=== PATIENT | male | born 1995 | race Caucasian/White ===

== ENCOUNTER 2021-06-10 17:13 | Emergency (ER) | payer BC, SELFPAY ==
[2021-06-10 17:28] VITALS: BP 147/86; PULSE 96; RESP 20; TEMP 37; O2SAT 100
--- NOTE | 2021-06-10 17:30 | ED.GENADULT ---
HPI - General Adult General Chief complaint: Wound/Laceration Stated complaint: Tailbone Injury Time Seen by Provider: 06/10/21 17:46 Mode of arrival: ambulatory Limitations: no limitations History of Present Illness HPI narrative: 25-year-old male presents concern for tailbone pain and drainage from the area since December. Reports he fell in December and has been having the symptoms since then. He reports occasional bleeding from the area. He denies any subsequent injury. He denies any intervention. Denies fever, body aches, chills, sweats. complaint: Tailbone pain Related Data Allergies Allergy/AdvReac Type Severity Reaction Status Date / Time No Known Allergies Allergy Verified 06/10/21 17:41 Review of Systems Review of Systems: CONSTITUTIONAL: Denies malaise, chills, sweats, or fever. SKIN: Reports intermittent drainage and bleeding from tailbone MUSCULOSKELETAL: Reports tailbone pain NEUROLOGIC: Denies numbness, weakness All systems reviewed & are unremarkable except as noted in HPI and below PMFSH Comments At time of signature, agree with nursing past medical, surgical, social and family history. There is no relevant family history pertinent to the presenting complaint Exam Narrative: GENERAL: Well-appearing, well-nourished, and in no acute distress. HEAD: Normocephalic EYES: PERRLA, sclera clear ENT: Mucous membranes moist. NECK: Supple. CHEST: No respiratory distress. Speaks in full sentences. HEART: Regular rate and rhythm. SKIN: Warm, dry, no visible rash. NEURO: Alert and oriented x3. PSYCH: Normal mood and affect Back/Spine/Pelvis: Back/spine/pelvis image: 1. Mild erythema and induration without fluctuation, clear drainage noted 2. Well-demarcated firm nodule Course Course Emergency Course: Advised patient to take antibiotic as directed and follow-up with general surgery for further evaluation Patient is aware of diagnosis, understands and agrees to treatment plan. Anticipatory guidance given. Patient agrees to follow-up as directed and is aware of reasons to seek care at the emergency department. Portions of this record may have been created with voice recognition software Level of Care: Express Care Visit Vital Signs Vital signs: Reviewed. Medical Decision Making MDM Narrative Medical decision making narrative: Exam findings show no acute concerns or changes; patient is non-toxic appearing and is in no distress. Patient is appropriate for outpatient treatment and follow-up. Critical Care Time Critical Care Time Critical Care Time: No Discharge Plan Discharge Clinical Impression: Cyst near coccyx Patient Disposition: Home, Self-Care Condition: Stable Instructions: Antibiotic Form, Pilonidal Cyst (ED) Additional Instructions: 1) Please follow-up with your primary care doctor in the next 1-2 days. 2) If you have any worsening of symptoms or any other urgent concerns please go to the ER. 3) Please take medications as prescribed. You may use warm moist compress to the area for pain relief. You may alternate Tylenol and ibuprofen for pain relief. 4) Please read and follow information included in discharge instructions. Prescriptions: New amoxicillin-pot clavulanate 875-125 mg tablet 1 tablet PO Q12H 10 Days Qty: 20 RF: 0 Follow-up/Referrals: PHYSICIAN,CHEERLEADING COACH [Primary Care Provider] - Eitan Sosa DO [Physician] - Time of Disposition: 17:53
== END 2021-06-10 18:04 | disposition home or self-care (01) ==
PROVIDERS: Emergency Provider Nurse Practitioner
DX: L72.9 Follicular cyst of the skin and subcutaneous tissue, unspecified (principal)
CPT/HCPCS: 99213; G0463

== ENCOUNTER 2022-03-23 13:12 | Emergency (ER) | payer BC, SELFPAY ==
[2022-03-23 13:21] VITALS: BP 192/83; PULSE 93; RESP 16; TEMP 36.3; O2SAT 98
--- NOTE | 2022-03-23 14:39 | ED.WOUNDLAC ---
HPI - Wound/Laceration General Chief Complaint: Wound/Laceration Stated Complaint: left thumb lac Time Seen by Provider: 03/23/22 14:30 Source: patient, RN notes reviewed and old records reviewed Mode of arrival: ambulatory Limitations: no limitations History of Present Illness HPI narrative: 26-year-old male who presents to [facility] with laceration to his dorsal left thumb which occurred today when removing old stool at grandmothers house to replace with new toilet. Patient reports that he cut it on area of cracked porcelin of old stool. Bleeding is controlled with flap type of laceration noted to dorsal aspect of his left dorsal thumb. patient reports that his tetanus is not up to date Onset (ago): minute(s) (within past 30 minutes prior to arrival at clinic) Location: other (left dorsal thumb) Patient tetanus UTD: No Treatments prior to arrival: bandage Related Data Allergies Allergy/AdvReac Type Severity Reaction Status Date / Time No Known Allergies Allergy Verified 06/10/21 17:41 Review of Systems Review of Systems: CONSTITUTIONAL: Denies fever, chills, or sweats. CARDIOVASCULAR: Denies chest pain, palpitations, or edema. RESPIRATORY: Denies cough or dyspnea. SKIN: Reports laceration to left dorsal thumb with bleeding controlled MUSCULOSKELETAL: Denies musculoskeletal pain NEUROLOGIC: Denies numbness, or weakness. All systems reviewed & are unremarkable except as noted in HPI and below PMFSH Social History Social History (Updated 03/24/22 @ 08:41 by Tina Hay NP) Smoking status: Never smoker Alcohol intake: current Alcohol use details: social Substance use: never Substance use type: does not use Gender identity (if verbalized by the patient): Male Comments At time of signature, agree with nursing past medical, surgical, social and family history. There is no relevant family history pertinent to the presenting complaint Exam Narrative: GENERAL: Well-appearing, well-nourished, and in no acute distress. HEAD: Normocephalic, atraumatic. NECK: Supple. no lymphadenopathy CHEST: Clear to auscultation. No respiratory distress.SAO2 98% on room air HEART: Regular rate and rhythm. No murmur heard. Normal peripheral pulses. EXTREMITIES: Normal range of motion. No edema. SKIN: Warm, dry, no rash. Reports 3cm flap type of laceration to left dorsal thumb with full mobility intact with normal pulses to left wrist, denies any tingling or numbness to left thumb or hand, nail bed blanches briskly NEURO: No focal deficits. Alert and oriented x3. Course Course Level of Care: Express Care Visit Vital Signs Vital signs: Vital Signs Temperature 36.3 C L 03/23/22 13:21 Pulse Rate 93 03/23/22 13:21 Respiratory Rate 16 03/23/22 13:21 Blood Pressure 192/83 H 03/23/22 13:21 Pulse Oximetry 98 03/23/22 13:21 Oxygen Delivery Room Air 03/23/22 13:21 Temperature 36.3 C L 03/23/22 13:21 Pulse Rate 93 03/23/22 13:21 Respiratory Rate 16 03/23/22 13:21 Blood Pressure 192/83 H 03/23/22 13:21 Pulse Oximetry 98 03/23/22 13:21 Oxygen Delivery Room Air 03/23/22 13:21 Procedures Laceration left dorsal thumb: Date: 03/23/22 Time: 14:40 Site: other (left dorsal thumb) Side (If applicable): left Size (cm): 3 Description: flap Depth: simple, single layer Local Anesthetic: lidocaine 1% Amount of anesthesia used (mL): 6 Pre-repair: wound explored, irrigated extensively and other (cleansed with [employer] wound cleanser) ====== Skin Level ====== Skin layer closed with: nylon Size (cm): 4-0 Number of sutures: 10 Technique: simple, interrupted ====== Subcutaneous Layer ====== ====== Muscle Layer ====== ====== Tendon Layer ====== Dressing: left thumb flap laceration cleansed with [employer] skin cleanser extensively irrigated with sterile saline solution with
[2022-03-23] MEDS: TETANUS,DIPHTHERIA,AC PERTUSSIS ADULT (0.5 ML) BOOSTRIX IM (15:00)
== END 2022-03-23 15:25 | disposition home or self-care (01) ==
PROVIDERS: Emergency Provider Registered Nurse
DX: S61.012A Laceration without foreign body of left thumb without damage to nail, initial encounter (principal); W26.8XXA Contact with other sharp object(s), not elsewhere classified, initial encounter; Z23 Encounter for immunization
CPT/HCPCS: 12002; 90471; 90715; 99213; G0463

== ENCOUNTER 2023-11-20 15:24 | Emergency (ER) | payer OTHER, BC, SELFPAY ==
--- NOTE | 2023-11-20 15:39 | ED.URI ---
HPI - URI/Sore Throat General Chief Complaint: Unspecified Stated Complaint: Lighthead,SOB,Pressure on eyes Time Seen by Provider: 11/20/23 15:41 Source: patient, RN notes reviewed and old records reviewed Mode of arrival: ambulatory Limitations: no limitations History of Present Illness HPI Narrative: 27-year-old male to [facility] for complaint of hot flashes, intermittent dizziness, increased activity intolerance, inability to concentrate since Thursday. Patient reports quitting his vape, which contained nicotine, cold turkey on Thursday after using for over 10 years. Patient states that symptoms have been intermittent and he used to vape occasionally Thursday and . Patient questioning if symptoms could be a result of anxiety or nicotine withdrawal. Patient called PCP today and has an appointment for Thursday at 2:00 pm. patient states he was concerned about his blood pressure and wanted to be seen today to have his blood pressure checked. Patient denies chest pain, shortness of breath, fever, nausea, weakness, numbness, tingling, abdominal pain, GI complaints, urinary changes, headache, ear pain, sore throat, cough, allergies. Patient is sitting comfortably in exam room in no acute distress. Respirations even and nonlabored. Patient able to speak in full sentences without difficulty. Patient alert and oriented x3. Patient able to tolerate fluids by. Related Data Home Medications Medication Instructions Recorded Confirmed testosterone cypionate 200 mg/mL 200 mg [id number] 11/20/23 11/20/23 intramuscular oil Allergies Allergy/AdvReac Type Severity Reaction Status Date / Time No Known Allergies Allergy Verified 11/20/23 15:45 Review of Systems Review of Systems: All systems reviewed & are unremarkable except as noted in HPI and below Constitutional: Constitutional: Reports as per HPI, Denies body ache(s), Denies chills, Denies fatigue, Denies fever(s), Denies headache(s) and Denies lethargy Eyes: Eyes: Reports no additional eye complaints ENT: Reports system reviewed and no additional complaints, except as documented Cardiovascular: Cardiovascular: Reports no additional cardiovascular complaints, Denies chest pain and Denies dyspnea Respiratory: Respiratory: Reports as per HPI, Denies change in phlegm color, Denies chest congestion, Denies cough, Denies pain on inspiration, Denies dyspnea, Reports dyspnea on exertion and Denies wheezing Gastrointestinal: Gastrointestinal: Reports no additional gastrointestinal complaints Musculoskeletal: Musculoskeletal: Reports as per HPI, Denies back pain, Denies myalgias, Denies muscle weakness, Denies numbness and Denies tingling Neurologic: Reports as per HPI, Reports Normal hearing present, Denies behavioral changes, Reports dizziness ( Intermittent), Denies syncope, Denies headache(s), Denies focal weakness, Denies loss of vision, Denies numbness, Denies Sensory deficit (Neuro), Denies tingling and Denies weakness Psychiatric: Psychiatric: Reports as per HPI and Reports difficulty concentrating Endocrine: Endocrine: Reports as per HPI and Reports flushing PMFSH Social History Social History Smoking status: Never smoker Alcohol intake: current Alcohol use details: social Substance use: never Substance use type: does not use Gender identity (if verbalized by the patient): Male Comments At the time of my signature, I reviewed and agree with the nursing past medical, surgical, social, and family history. There is no relevant family history pertinent to the patient complaint. Exam Const: General: cooperative, comfortable, no acute distress, alert, anxious, well groomed, well nourished and obese Nutritional Appearance: well nourished Orientation/consciousness: patient oriented x3 Limitations: no limitations HENMT: Head: normal to inspection Ears: external ears normal Face/Nose/Sinus: [place]
[2023-11-20 15:47] VITALS: BP 135/86; PULSE 81; RESP 18; TEMP 36.5; O2SAT 99
[2023-11-20 16:03] LABS: EDCOVIDSCREEN Negative (Negative); EDINFLUASCREEN Negative (Negative); EDINFLUBSCREEN Negative (Negative)
== END 2023-11-20 16:38 | disposition home or self-care (01) ==
PROVIDERS: Emergency Provider Nurse Practitioner Family
DX: F17.293 Nicotine dependence, other tobacco product, with withdrawal (principal); Z20.822 Contact with and (suspected) exposure to COVID-19
CPT/HCPCS: 87635; 87804; 99213; G0463